=== PATIENT | female | born 1990 | race Caucasian/White ===

== ENCOUNTER 2022-01-19 12:05 | Emergency (ER) | payer OTHER ==
[~2022-01-19 12:05] MED LIST: AMOXICILLIN500 MG PO; AUGMENTIN 875-1 EACH PO; MEDROL 4MG DOSEP4 MG PO; PROVENTIL HFA6.7 GM INH; SYMBICORT 80-10.2 GM INH; ZPAK PO
[2022-01-19 13:01] LABS: BASOPHIL 0.3 % (0-2); EOSINOPHIL 0.6 % (0-5); HCT 43.2 % (37.0-47.0); HGB 14.6 g/dl (12.5-16.0); LYMPHOCYTE 17.2 % (15-48); MCH 31.1 pg (25.0-31.0); MCHC 33.8 g/dL (32.0-36.0); MCV 92.1 fL (78.0-100.0); MONOCYTE 6.5 % (0-12); MPV 9.6 fL (6.0-9.5); NRBC 0; PLT 260 K/uL (150-400); RBC 4.69 M/uL (4.20-5.40); RDW 12.8 % (11.5-14.0); WBC 10.9 K/uL (4.0-10.5)
[2022-01-19 13:26] LABS: ALBUMIN 3.6 g/dL (3.4-5.0); BILIRUBIN - TOTAL 0.4 mg/dL (0.2-1.0); BUN/CREAT RATIO (CALC) 17.7 RATIO; CREATININE 0.62 mg/dL (0.51-0.95); GLOBULIN (CALCULATION) 3.4 g/dL; POTASSIUM 3.1 mmol/L (3.5-5.1)
[2022-01-19] MEDS ORDERED: DUONEB 2.5-0.5M1 AMP INH (14:41)
[2022-01-19] MEDS ORDERED: PREDNISONE 20MG20 MG PO (14:41)
== END 2022-01-19 15:35 | disposition home or self-care (01) ==
LOC: FER 12:05
PROVIDERS: Emergency Medicine
DX: J45.901 Unspecified asthma with (acute) exacerbation (principal); F17.200 Nicotine dependence, unspecified, uncomplicated; Z20.822 Contact with and (suspected) exposure to COVID-19
CPT/HCPCS: 36415; 36600; 71045; 80053; 82803; 85025; 85379; 94664; J2930; U0002